=== PATIENT | male | born 1995 | race Caucasian/White ===

== ENCOUNTER 2017-12-21 12:35 | Emergency (ER) | END 2017-12-21 13:57 | disposition left against medical advice (07) | LOC: UCCORT 12:35 | DX: J90 Pleural effusion, not elsewhere classified (principal); Z53.21 Procedure and treatment not carried out due to patient leaving prior to being seen by health care provider ==

== ENCOUNTER 2018-02-25 18:59 | Emergency (ER) | payer BC ==
[2018-02-25 19:24] VITALS: BP 152/63
--- NOTE | 2018-02-25 19:51 | UC ---
Skin Complaint HPI - HPI Summary HPI Summary: Pt c/o skin irritation distal penis, edge of anterior stringer. - History of Current Complaint Chief Complaint: UCGU Time Seen by Provider: 02/25/18 19:18 Stated Complaint: PERSONAL Hx Obtained From: Patient Onset/Duration: Gradual Onset, Lasting Weeks, Still Present, Worse Since - last night Skin Exposure Onset/Duration: Weeks Ago Timing: Constant Onset Severity: Mild Current Severity: Mild Pain Intensity: 0 Location: Discrete Character: Redness, Painful Aggravating Factor(s): Touch Alleviating Factor(s): Unknown Associated Signs & Symptoms: Positive: Tenderness - Allergy/Home Medications Allergies/Adverse Reactions: Allergies Allergy/AdvReac Type Severity Reaction Status Date / Time No Known Allergies Allergy Verified 02/25/18 19:24 Home Medications: Home Medications Dextroamphetamine/Amphetamine [Adderall 10 mg-] 1 tab PO DAILY 02/25/18 [ History Confirmed 02/25/18] Dextroamphetamine/Amphetamine [Adderall Xr 20 mg Capsule] 20 mg PO DAILY [History Confirmed 02/25/18] Review of Systems Constitutional: Negative Skin: Other - mild erythema, tenderness Eyes: Negative ENT: Negative Respiratory: Negative Cardiovascular: Negative Gastrointestinal: Negative Genitourinary: Vaginal/Penile Tenderness Motor: Negative Neurovascular: Negative Musculoskeletal: Negative Neurological: Negative Psychological: Negative Is Patient Immunocompromised?: No All Other Systems Reviewed And Are Negative: Yes PMH/Surg Hx/FS Hx/Imm Hx Previously Healthy: Yes - Surgical History Surgical History: Yes Surgery Procedure, Year, and Place: left thumb d/t fracture. right shattered hip surg x4. left hand d/t fx. fx nose. adenoids - Family History Known Family History: Positive: Cardiac Disease - Social History Occupation: Student Lives: With Family Alcohol Use: Occasionally Alcohol Amount: once a week Substance Use Type: Marijuana Substance Use Comment - Amount & Last Used: once a day Smoking Status (MU): Never Smoked Tobacco Have You Smoked in the Last Year: No Physical Exam Triage Information Reviewed: Yes Appearance: Well-Appearing Vital Signs: Initial Vital Signs Temp 98.6 F 02/25/18 19:15 Pulse 87 02/25/18 19:15 Resp 18 02/25/18 19:15 BP 152/63 02/25/18 19:15 Pulse Ox 100 02/25/18 19:15 Vital Signs Reviewed: Yes Eye Exam: Normal ENT: Positive: Hearing grossly normal Dental Exam: Normal Neck exam: Normal Respiratory: Positive: No respiratory distress Male Genital Exam: Positive: Other - mild erythema to anterior coronal ring, ~ 1 cm, no lesions, no chnacre, no vessicles, no warts Musculoskeletal Exam: Normal Neurological Exam: Normal Psychological Exam: Normal Skin Exam: Normal Course/Dx - Differential Diagnoses - Skin Complaint Differential Diagnoses: Contact Dermatitis, Other - STD - Diagnoses Provider Diagnoses: contact dermatitis Discharge - Sign-Out/Discharge Documenting (check all that apply): Discharge - Discharge Plan Condition: Stable Disposition: HOME Patient Education Materials: Safe Sex (ED), Contact Dermatitis (ED) Referrals: [facility] [Outside] No Primary Care Phys,NOPCP [Primary Care Provider] - Additional Instructions: Please follow up with PCP or return to clinic as needed. - Billing Disposition and Condition Condition: STABLE Disposition: HOME
== END 2018-02-25 19:55 | disposition home or self-care (01) ==
LOC: UCCORT 18:59
DX: L25.9 Unspecified contact dermatitis, unspecified cause (principal)
CPT/HCPCS: 81003; 99211; G0463

== ENCOUNTER 2018-03-11 09:09 | Emergency (ER) | payer BC ==
[2018-03-11 09:41] VITALS: BP 119/68
--- NOTE | 2018-03-11 10:12 | RAD ---
INDICATION: Left foot injury. TECHNIQUE: 3 views of the left foot were obtained. FINDINGS: There is lateral soft tissue swelling. There is an oblique fracture of the distal diaphysis and metaphysis of the fifth metatarsal. The distal fragment is distracted slightly and displaced one cortical diameter medial and dorsal relative to the proximal fragment. IMPRESSION: OBLIQUE SLIGHTLY DISPLACED FRACTURE OF THE FIFTH METATARSAL.
--- NOTE | 2018-03-11 12:27 | UC ---
Lower Extremity/Ankle HPI - HPI Summary HPI Summary: pt presents with foot pain, bruising, swelling s/p shuffle dance competition injury. no other complaints - History of Current Complaint Chief Complaint: UCLowerExtremity Stated Complaint: LFT FOOT INJURY Time Seen by Provider: 03/11/18 09:51 Hx Obtained From: Patient Onset/Duration: Sudden Onset, Lasting Hours Severity Initially: Moderate Severity Currently: Moderate Pain Intensity: 10 Pain Scale Used: 0-10 Numeric Aggravating Factor(s): Standing, Ambulation Alleviating Factor(s): Rest, Elevation, Ice, Other - pressure Able to Bear Weight: Yes - Allergies/Home Medications Allergies/Adverse Reactions: Allergies Allergy/AdvReac Type Severity Reaction Status Date / Time strawberry Allergy Unknown Verified 03/11/18 09:41 Reaction Details PMH/Surg Hx/FS Hx/Imm Hx Psychological History: Other Other Psychological History: adhd - Surgical History Surgical History: Yes Surgery Procedure, Year, and Place: left thumb d/t fracture. right shattered hip surg x4. left hand d/t fx. fx nose. adenoids - Family History Known Family History: Positive: Cardiac Disease - Social History Occupation: Student Alcohol Use: Occasionally Alcohol Amount: once a week Substance Use Type: Marijuana Substance Use Comment - Amount & Last Used: twice a day, last dose 03/10/18 Type: eCigarettes Have You Smoked in the Last Year: No Cessation Counseling: Patient Advised to Stop Review of Systems Constitutional: Negative Skin: Negative Eyes: Negative ENT: Negative Respiratory: Negative Cardiovascular: Negative Gastrointestinal: Negative Neurovascular: Negative Musculoskeletal: Other: - see hpi Neurological: Negative Psychological: Negative Is Patient Immunocompromised?: No All Other Systems Reviewed And Are Negative: Yes Physical Exam Triage Information Reviewed: Yes Appearance: Well-Appearing, No Pain Distress, Well-Nourished Vital Signs: Initial Vital Signs Temp 98.4 F 03/11/18 09:29 Pulse 77 03/11/18 09:29 Resp 18 03/11/18 09:29 BP 119/68 03/11/18 09:29 Pulse Ox 99 03/11/18 09:29 Vital Signs Reviewed: Yes Eyes: Positive: Conjunctiva Clear. Negative: Discharge ENT: Positive: Hearing grossly normal. Negative: Muffled voice, Hoarse voice Neck: Positive: Supple Respiratory: Positive: Lungs clear, Normal breath sounds, No respiratory distress, No accessory muscle use Cardiovascular: Positive: RRR, No Murmur, Pulses Normal Musculoskeletal: Positive: Other: - swelling bruising sid tenderness over 4th and 5th metatarsal. 5th metatarsal is tender from the base ot the distal portion. tenderness is worst at the distal portion Neurological: Positive: Alert, Muscle Tone Normal Skin: Positive: Other - bruising and swelling as noted in msk exam but skin otherwise warm, dry normal color Lower Extremity Course/Dx - Differential Dx/Diagnosis Provider Diagnoses: 5th metatarsal fx, suspected fx Discharge - Sign-Out/Discharge Documenting (check all that apply): Discharge/Admit/Transfer - Discharge Plan Condition: Stable Disposition: HOME Prescriptions: HYDROcodone/ACETAMIN 5-325 MG* [Holly 5-325 TAB*] 1 tab PO Q6H PRN #14 tab MDD 4 TABS PRN Reason: Pain Patient Education Materials: Foot Fracture in Adults (ED), Suspected Fracture ( ED), Crutch Instructions (ED) [facility] [Outside] Nicolasa Zamora MD [Medical Doctor] - (follow up in 1-5 days or as per ortho) Additional Instructions: Your history and exam is suspicous for possible occult fracture of the base of the 5th metatarsal. This is a fracture that can have a bad outcome if not properly immobilized. So, we will treat this as a fracture until proven otherwise. That means that you must wear the WALKING BOOT 24 hours a day until the ortho provider tells you otherwise. You should also remain NON-WEIGHT BEARING until told otherwise by the orthopedist, so walking and standing should be done with the help of crutches. It will take 5-7 days to establish whether or not your bone is fractured. - Billing Disposition and Condition Condition: STABLE Disposition: HOME
== END 2018-03-11 11:32 | disposition home or self-care (01) ==
LOC: UCCORT 09:09
DX: S92.352A Displaced fracture of fifth metatarsal bone, left foot, initial encounter for closed fracture (principal); Y93.41 Activity, dancing; Y92.9 Unspecified place or not applicable
CPT/HCPCS: 99212; G0463